=== PATIENT | male | born 1965 | race Caucasian/White ===

== ENCOUNTER → 2016-06-26 | Outpatient (CLI) | payer OTHER ==
--- NOTE | ~2016-06-26 | CT2 ---
[facility] A Service of [facility] RADIOLOGY TEXT RESULTS PATIENT: [facility]US[facility]OTH [facility] 65 UNIT #: [id number] AGE: [address]: Chari Guzmán MD SEX: M ORDER DR: [id number] [facility] [address] [place], [place] [address] [id number] O MR#: [id number] Acc #: [id number] NAME: HUSAM ROTH : 1965 SEX: M STUDY DATE/TIME: 06/26/2016 14:58 UNIT: [facility] ROOM: STUDY DESCRIPTION: CT Abd and Pelv W Cont Attending Physician: Chari Guzmán M.D. Referring Physician: Chari Guzmán M.D. Ordering Physician: Chari Guzmán M.D. Primary Care Physician: Chari Guzmán M.D. MEDICAL IMAGING REPORT This report is preliminary unless electronic signature is present EXAM CT abdomen and pelvis with contrast 06/26/2016 INDICATIONS Left lower quadrant abdominal pain for the past week. PROCEDURE Contrast-enhanced CT of the abdomen and pelvis. This CT exam was performed with one or more of the following radiation dose reduction techniques: automatic exposure control, adjustment of mA and/or kV according to patient size, and iterative reconstruction. COMPARISON None FINDINGS ABDOMEN WITH CONTRAST: Included lung base are clear. Liver, spleen, kidneys, adrenal glands, pancreas unremarkable. Previous cholecystectomy. Moderate colonic stool burden. Appendix is normal. PELVIS WITH CONTRAST: No pelvic mass or fluid. No aggressive appearing bone lesion. IMPRESSION No acute findings in the abdomen or pelvis. Dictated by... Skuhjinder Rodrigez M.D. THIS IS AN ELECTRONICALLY VERIFIED REPORT Sukhjinder Rodrigez M.D. at 06/29/2016 8:24 AM [facility] A Service of [facility] RADIOLOGY TEXT RESULTS PATIENT: HUSAM ROTH [facility] 65 UNIT #: [id number] AGE: [address]: Chari Guzmán MD SEX: M ORDER DR: JULIANNE/anna TD: 06/26/2016 17:28 JOB #: [id number] MEDICAL IMAGING REPORT Page 1 of 1 COPY
== END | disposition home or self-care (01) ==
LOC: CCAT 12:35
DX: K44.9 Diaphragmatic hernia without obstruction or gangrene (principal); R10.32 Left lower quadrant pain
CPT/HCPCS: 74177; Q9967